=== PATIENT | female | born 1980 | race Caucasian/White ===

== ENCOUNTER → 2019-10-18 11:00 | Outpatient (BNVA) | payer BC, SELFPAY | PROVIDERS: Visit Provider Obstetrics & Gynecology | DX: N93.9 Abnormal uterine and vaginal bleeding, unspecified (principal) | CPT/HCPCS: 83001; 84146; 84443; 84703 ==

== ENCOUNTER → 2019-10-20 09:10 | Outpatient (BNVA) | payer BC, SELFPAY | PROVIDERS: Referring Provider Obstetrics & Gynecology; Visit Provider Obstetrics & Gynecology | DX: N93.9 Abnormal uterine and vaginal bleeding, unspecified (principal); D25.9 Leiomyoma of uterus, unspecified; N83.8 Other noninflammatory disorders of ovary, fallopian tube and broad ligament | CPT/HCPCS: 76830 ==

== ENCOUNTER → 2019-11-17 14:47 | Outpatient (BNVA) | payer BC, SELFPAY | PROVIDERS: Visit Provider Obstetrics & Gynecology | DX: N93.9 Abnormal uterine and vaginal bleeding, unspecified (principal) | CPT/HCPCS: 81025 ==

== ENCOUNTER → 2019-11-18 09:46 | Outpatient (BNVA) | payer BC, SELFPAY | PROVIDERS: Visit Provider Obstetrics & Gynecology | DX: N93.9 Abnormal uterine and vaginal bleeding, unspecified (principal) | CPT/HCPCS: 88305 ==

== ENCOUNTER 2019-11-30 09:25 | Day surgery (SDC) | payer BC, SELFPAY ==
[2019-11-28 10:13] VITALS: BMI 48.0
[2019-11-28 10:38] LABS: OR HCG Qualitative Urine Negative (Negative)
--- NOTE | 2019-11-28 10:43 | ANES.PREANE2 ---
Pre-Anesthetic Assessment Pre-Anesthetic Assessment: Height/Weight: Height 1.63 m Weight 127.006 kg Proposed Procedure: Operation Date: 11/30/19 10:15 Proposed Procedures p Hysteroscopy [id number] N93.9 R10.2(Not Applicable) - Eleuterio Cutler MD s Dilation And Curettage (D&C)/with Myosure/Paracervical Block(Not Applicable) - Eleuterio Cutler MD s Laparoscopy Diagnostic(Not Applicable) - Eleuterio Cutler MD Was Beta Bree taken within 24 hours: N/A Social: Social History: No alcohol and No tobacco Exam: Pre-Anes Outpt Exam: alert, oriented x 3, clear to auscultation bilaterally and regular rate & rhythm Airway: Submandibular: WNL Cervical ROM: WNL MP: 2 Dentition: Full Pulmonary: Pulmonary: Sleep apnea (CPAP) CV/HEM: CV/HEM: None reported : : None reported Hepatic: Hepatic: None reported GI: GI: GERD Metabolic: Metabolic: Morbid obesity Musc/skel: Musc/skel: None reported Neuropsych: Neuropsych: SMITH Anesthetic Plan: ASA status: 2 Anesthesia: General Risk of > 500 ml blood loss (7ml/kg in children): No PFSH Anesthesia PFSH: Social History Smoking and tobacco status: former smoker Quit status (tobacco): has quit using tobacco Year quit tobacco: 22 years ago Alcohol intake: current Alcohol intake frequency: holidays/special occasions only Additional social history: Female Reproductive History: Date of last menstrual period: 11/14/19 Data Anesthesia Other Labs: Laboratory Results - last 48 hr 11/28/19 10:32 Urine HCG, Qual Negative Cardiac Studies: No Data to Display
[2019-11-30] VITALS (8 sets, daily range): BP systolic 117–156; BP diastolic 72–103; PULSE 60–106; RESP 13–20; TEMP 36.6–36.9; O2SAT 96–99
--- NOTE | 2019-11-30 09:54 | P.ANESUD_ITS ---
Pre-Anesthetic Update Pre-Anesthetic Assessment: Date of Surgery/Procedure: 11/30/19 Preop Sophia gnosis: Pelvic pain, abnormal uterine bleeding Proposed Procedure: Operation Date: 11/30/19 10:15 Proposed Procedures p Hysteroscopy 75086 [id number] N93.9 R10.2(Not Applicable) - Eleuterio Cutler MD s Dilation And Curettage (D&C)/with Myosure/Paracervical Block(Not Applicable) - Eleuterio Cutler MD s Laparoscopy Diagnostic(Not Applicable) - Eleuterio Cutler MD Any changes to Pre-Anesthetic Assessment?: No Last Intake: Intake Last Liquid Date 11/29/19 Last Liquid Time 20:00 Last Solid Date 11/29/19 Last Solid Time 20:00 Labs Last 48hrs: Laboratory Results - last 48 hr 11/28/19 10:32 Urine HCG, Qual Negative Vitals: Temperature 98 F 11/30/19 09:50 Temperature Source Temporal Artery S can 11/30/19 09:50 Pulse Rate 106 H 11/30/19 09:50 Respiratory Rate 16 11/30/19 09:50 Blood Pressure 156/103 11/30/19 09:50 Blood Pressure Neda n 120 11/30/19 09:50 Pulse Oximetry 98 11/30/19 09:50 Oxygen Delivery Me thod 11/30/19 09:50 Exam: Pre-Anes Outpt Exam: alert, oriented x 3, clear to auscultation bilaterally and regular rate & rhythm Cardiac Studies: No Data to Display
[2019-11-30 10:17] LABS: Add Urine Microscopic? NO
[2019-11-30 10:23] LABS: Bilirubin Urine Neg (NEGATIVE); Blood Urine Neg (Negative); Glucose Urine UA Norm (Normal); Ketones Urine Negative (Negative); Leukocyte Esterase Urine Negative (Negative); Nitrate Urine Negative (Negative); Protein Urine Neg (Negative); Sulfosalicylic Acid Urine Negative; Urine Appearance Clear (CLEAR); Urine Color Straw (Yellow); Urobilinogen Urine Norm (Negative)
[2019-11-30] MEDS: sodium chloride 0.9% 1,000 ML 30 ML IV (10:40)
[2019-11-30] MEDS: ketorolac 30 mg/mL INJ IVP (10:40)
--- NOTE | 2019-11-30 11:03 | W.PM.OPSUD ---
Surgery/Procedure H&P Update DATE OF PROCEDURE: November 30, 2019 DATE H&P PERFORMED: 11/28/19 H&P UPDATE INFORMATION: I have reviewed H&P completed within last 30 days and I have examined patient prior to procedure PREOP DIAGNOSIS: Pelvic pain, abnormal uterine bleeding PLANNED PROCEDURE: Operation Date: 11/30/19 10:15 Proposed Procedures p Hysteroscopy [id number] N93.9 R10.2(Not Applicable) - Eleuterio Cutler MD s Dilation And Curettage (D&C)/with Myosure/Paracervical Block(Not Applicable) - Eleuterio Cutler MD s Laparoscopy Diagnostic(Not Applicable) - Eleuterio Cutler MD
[2019-11-30 11:38] LABS: Basophils # 0.1 10^3/uL (0.0-0.1); Basophils % 0.6 %; Eosinophils # 0.4 10^3/uL (0.0-0.8); Hematocrit 36.1 % (37.0-47.0); Hemoglobin 11.4 g/dL (11.5-15.3); Lymphocytes # 2.8 10^3/uL (0.8-4.8); Lymphocytes % 31.9 %; Mean Corpuscular HGB Conc 31.6 g/dL (30.0-36.0); Mean Corpuscular Hemoglobin 25.6 pg (28.0-34.0); Mean Corpuscular Volume 81.1 fL (81-99); Mean Platelet Volume 11.6 fL (7.4-10.4); Monocytes # 0.6 10^3/uL (0.2-0.9); Neutrophils % 56.1 %; Nucleated Red Blood Cells % 0 %; Platelet Count 264 10^3/cmm (130-400); Red Blood Count 4.45 10^6/uL (4.1-5.3); Red Cell Distribution Width 14.6 % (12.1-15.1); White Blood Count 8.9 10^3/uL (4.0-10.0)
[2019-11-30 11:49] LABS: Alanine Aminotransferase 16 U/L (0-33); Albumin Level 4.1 g/dL (3.5-5.2); Alkaline Phosphatase 84 IU/L (35-105); Anion Gap 15.3 (5-19); Aspartate Amino Transferase 18 U/L (0-32); Blood Urea Nitrogen 14 mg/dL (6-20); Carbon Dioxide 22 mmol/L (22-29); Chloride 105 mmol/L (98-107); Glomerular Filtration Rate 110.7 mL/min (90-130); Glucose 94 mg/dL (65-115); Osmolality Calculated 282 mOsm/kg (285-295); Potassium 4.3 mmol/L (3.5-5.1); Sodium 138 mmol/L (136-145); Total Bilirubin 0.2 mg/dL (0.15-1.2); Total Protein 7.1 g/dL (6.6-8.7)
--- NOTE | 2019-11-30 12:15 | SUR.PHASEI ---
1211 PATIENT TO PACU AT THIS TIME. PATIENT NOTED TO BE SNORING, RR EVEN AND UNLABORED. PLACED ON SIMPLE MASK AT 8L, SPO2 100%. INCISION TO ABDOMEN, CLOSED WITH DERMABOND, CDI.
--- NOTE | 2019-11-30 12:16 | P.OP_ITS ---
Operative Report Date of procedure: November 30, 2019 Pre-op Diagnosis: Pelvic pain, abnormal uterine bleeding Post-op diagnosis: same Post-op Findings: Endometrial polyp. Uterine fibroid. Endometriosis. Pelvic adhesions Procedure Done: Diagnostic laparoscopy with fulguration of endometriosis lesions and lysis of adhesions. Hysteroscopy with polypectomy via MyoSure. Pathology: endometrial curettings with endometrial polyp Surgeon: Eleuterio Cutler Anesthesia: General Estimated blood loss (mL): 25 IV fluids (mL): 750 Urine output (mL): 100 Complications: none Condition: stable Disposition: PACU Brief History: 39-year-old female with a history of abnormal uterine bleeding and pelvic pain Procedure: DESCRIPTION OF PROCEDURE: After informed consent, the patient was taken to the operating room where general anesthesia was administered. The patient was examined under anesthesia and found to have a normal uterus with normal adnexa. She was placed in the dorsal lithotomy position and prepped and draped in sterile fashion. Pre- Procedure Time-Out verifying the correct patient identity, correct procedure verified with consent, correct site and side, correct patient position, availability of correct implants and any special equipment or requirements was performed and acknowledge by the OR team. A weighted speculum was placed in the vagina, and the anterior lip of cervix was grasped with the single toothed tenaculum. A uterine manipulator was advanced into the endocervical. Tenaculum was removed after uterine manipulator was secured. The speculum was removed from the vagina. An intraumbilical incision was made with a scalpel. While tenting up on the abdomen, a Verres needle with sleeve was admitted into the intra-abdominal cavity. A saline drop test was performed and noted to be within normal limits. Pneumoperitoneum was attained with 4 liters of carbon dioxide. The Verres needle was removed. A 5 mm trocar and sleeve were admitted into the abdomen and laparoscopic confirmation of location was achieved, A second incision was made 3 cm above the symphysis pubis, and a 5 mm trocar and sleeve were admitted into the abdomen under direct, laparoscopic visualization without complication. A survey revealed normal abdominal anatomy. A 5 mm blunt probe was advanced through the second trocar sleeve, and light manipulation of ovaries and uterus to assess the posterior aspects was performed and the pelvic survey shows uterus a with large posterior leiomyoma, normal left and right adnexa. Left ovarian fossa and cul-de-sac shows endometriosis lesions. drinking adhesions from posterior cervix to the rectum. Adhesions were lysed with the Voyant hysteroscopic device. The endometriosis lesions were fulgurated with the Voyant laparoscopic device. Carbon dioxide was allowed to escape from the abdomen. The laparoscopic incisions were closed with subcuticular sutureand adhesive dressing. Then we proceeded to perform the hysteroscopic polypectomy. After informed consent, the risks included but were not limited to bleeding, infection, injury to internal organs. The patient was counseled on a possible laparotomy and on the potential need for hysterectomy. The patient expressed understanding of the risks involved, all questions were answered, and the patient consented to the procedure. The patient was taken to the operating room where general anesthesia was administered. She was placed in the dorsal lit hotomy position and prepped and draped in sterile fashion. A time out procedure was performed. The patient was examined under anesthesia and found to have a normal uterus with normal adnexa. A sterile weight speculum was placed in the vagina. The uterus was then gently sounded to 8 cm, and the cervix was dilated. The 0 degrees MyoSure hysteroscope was advanced gently to the uterine fundus while visualizing the monitor. Survey of the uterine cavity showed: endometrial polyp from the fundus, the fundus shows proliferative endometrium and endometrial polyp; left ostium was visualized, and lateral wall with proliferative endometrium; right ostium visualized, and lateral wall with proliferative endometrium; anterior and posterior espino are with proliferative endometrium; endocervical canal is normal. The MyoSure device was advanced and the direct visualization the endometrial polyp was morcellated without complication. At the end of morcellation the fluid deficit was 550 mL and was estimated at approximately 400 mL were on the floor. There was minimal bleeding noted and the tenaculum removed with goad hemostasis noted. The patient tolerated the procedure well. The instruments were removed from the vagina, and excellent hemostasis was noted. The patient tolerated the procedure well, and sponge, lap and needle count were correct times two. The patient taken to the recovery room in good condition.
--- NOTE | 2019-11-30 12:37 | SUR.PHASEI ---
1233 PATIENT TO OPS AT THIS TIME. RR EVEN AND UNLABORED. TOLERATING ICE CHIPS. RATES PAIN 3/10.
--- NOTE | 2019-11-30 13:14 | PM.PACU ---
PACU note Post-Anesthesia Exam: awake and vital signs stable Disposition: discharged
== END 2019-11-30 13:38 | disposition home or self-care (01) ==
PROVIDERS: PCP Nurse Practitioner Family; Visit Provider Obstetrics & Gynecology
PROC: 0UJD8ZZ Inspection of Uterus and Cervix, Via Natural or Artificial Opening Endoscopic (ICD-10-PCS; CPT 58555; principal; 2019-11-30 10:45)
PROC: (CPT 58120; 2019-11-30 10:45)
PROC: (CPT 49320; 2019-11-30 10:45)
DX: N93.9 Abnormal uterine and vaginal bleeding, unspecified (principal); G47.30 Sleep apnea, unspecified; K21.9 Gastro-esophageal reflux disease without esophagitis; E66.01 Morbid (severe) obesity due to excess calories; Z68.42 Body mass index [BMI] 45.0-49.9, adult; Z87.891 Personal history of nicotine dependence
CPT/HCPCS: 58558; 58662; 12345; 36415; 80053; 81003; 81025; 84703; 85025; 86850; 86900; 88309; 96374; J0330; J1100; J1885; J2001; J2250; J2405; J2704; J3010; J3490; J7030

== ENCOUNTER 2020-04-30 11:42 | Outpatient (CLI) | payer BC, SELFPAY ==
--- NOTE | 2020-04-30 11:43 | MM_ITS ---
WS: [id number] BILATERAL DIGITAL SCREENING MAMMOGRAPHY WITH CAD CLINICAL INFORMATION: SCREENING HISTORY: Screening mammogram. No current complaints. COMPARISON: April 21, 2019 TECHNIQUE: Bilateral CC and MLO views. FINDINGS: Scattered fibroglandular densities bilaterally. No suspicious focal mass, asymmetry, calcifications, or architectural distortion. No evidence of malignancy. MM/[place] [id number] IMPRESSION: BI-RADS: 1-Negative FOLLOW UP: 1 Year Follow-up Recommend return to annual screening mammography.
== END 2020-04-30 11:43 | disposition home or self-care (01) ==
LOC: RADSHAW 11:42
PROVIDERS: PCP Nurse Practitioner Family; Visit Provider Nurse Practitioner Family
DX: Z12.31 Encounter for screening mammogram for malignant neoplasm of breast (principal)
CPT/HCPCS: 77067